=== PATIENT | female | born 1945 | race Caucasian/White ===

== ENCOUNTER → 2016-08-30 | Outpatient (CLI) | payer MEDICARE, BC | LOC: MW.CHFP 09:02 | PROVIDERS: ATTEND Nurse Practitioner Family | DX: R73.03 Prediabetes (principal); I10 Essential (primary) hypertension; E78.00 Pure hypercholesterolemia, unspecified; R73.09 Other abnormal glucose | CPT/HCPCS: 36415; 80053; 80061; 83036; 99214 ==

== ENCOUNTER → 2016-09-28 | Outpatient (CLI) | payer MEDICARE, BC | LOC: MW.CHFP 08:00 | PROVIDERS: ATTEND Nurse Practitioner Family | DX: R42 Dizziness and giddiness (principal) | CPT/HCPCS: G0463 ==

== ENCOUNTER → 2016-10-16 | Outpatient (CLI) | payer MEDICARE, BC | LOC: MW.CHFP 08:00 | PROVIDERS: ATTEND Nurse Practitioner Family | DX: R42 Dizziness and giddiness (principal) | CPT/HCPCS: G0463 ==

== ENCOUNTER → 2016-10-18 | Outpatient (CLI) | payer MEDICARE, BC ==
--- NOTE | 2016-10-18 13:22 | CT ---
EXAMINATION: Non contrast CT head. Coronal and sagittal reformats. HISTORY: Dizziness FINDINGS: No evidence of intra or extra axial hemorrhage, mass, midline shift, hydrocephalus or edema. There is mild generalized atrophy. Periventricular and subcortical white matter hypodensities are noted. No hypoattenuation changes in the major vascular territories to suggest acute infarct. No abnormal intracranial calcifications are detected. No evidence of substantial vascular calcifica tions. Paranasal sinuses and mastoid air cells are well aerated without substantial findings. Pituitary fossa appears unremarkable. Calvarium is intact. No evidence of skull fracture. IMPRESSION: 1. No acute intracranial findings. 2. Mild generalized atrophy and moderate small vessel ischemic changes.
== END | disposition home or self-care (01) ==
LOC: MW.DI 09:46
PROVIDERS: ATTEND Nurse Practitioner Family
DX: R42 Dizziness and giddiness (principal); R00.2 Palpitations; G31.9 Degenerative disease of nervous system, unspecified; I67.89 Other cerebrovascular disease
CPT/HCPCS: 36415; 70450; 70450-26; 84443; 85025

== ENCOUNTER → 2016-10-27 | Outpatient (CLI) | payer MEDICARE, BC ==
--- NOTE | 2016-10-29 16:35 | US ---
EXAM DATE: 10/27/16 PATIENT'S AGE: 71 Patient: SABINO ALCANTAR Facility: [place], [place] Site . Site : 1945 Study: US Neck Angio [id number]/28/2017 11:05:59 AM Ordering Physician: Debra Roman Final Report: HISTORY: Dizziness and giddiness. Findings: Multiple grayscale static images from a bilateral carotid ultrasound were evaluated. Color and spectral Doppler was used. There is intimal thickening in the right common carotid artery. Echogenic plaque is seen in the right carotid bulb extending into the proximal right internal carotid artery. The peak systolic velocity this right common carotid artery is 61 cm/second. The peak systolic velocity in the right internal carotid artery is 54 cm/second. The peak end-diastolic velocity is 20 cm/second. The right external carotid is patent. The right vertebral artery demonstrates antegrade flow. Right ICA/CCA ratio is 0.89. Evaluation of the left carotid vasculature demonstrates intimal thickening left common carotid artery. There is some echogenic plaque within the carotid bulb extending to proximal internal carotid artery. The peak systolic velocity in the distal left common carotid artery 64 cm/second. The peak systolic velocity left internal carotid artery is 67 cm/second. Peak end-diastolic velocity is 25 cm/second. The left external carotid artery is patent. The left vertebral artery demonstrates antegrade flow. Left ICA/ CCA ratio is 1.04. Impression: 1. The Doppler waveforms within the right and left internal carotid arteries are compatible with less than 50 percent stenosis. 2. Antegrade flow within both vertebral arteries. Dictated by Sadaf Lange MD @ Oct 27 2016 7:20PM (Electronic Signature) Report Signed by Proxy. CHRISSIE
--- NOTE | 2016-10-31 17:16 | ECHO ---
The echocardiogram report can be seen in this patient's EMR in the Reports section MTDD
== END ==
LOC: MW.US 09:19
PROVIDERS: ATTEND Nurse Practitioner Family
DX: R42 Dizziness and giddiness (principal)
CPT/HCPCS: 93306; 93880; 93880-26

== ENCOUNTER → 2016-11-09 | Outpatient (CLI) | payer MEDICARE, BC | LOC: MW.CHFP 08:00 | PROVIDERS: ATTEND Nurse Practitioner Family | DX: I10 Essential (primary) hypertension (principal) | CPT/HCPCS: G0463 ==

== ENCOUNTER 2020-06-19 13:48 | Emergency (ER) | payer MEDICARE, BC ==
--- NOTE | 2020-06-19 13:54 | EDM.PDOC ---
ED HPI GENERAL MEDICAL PROBLEM - General Chief Complaint: Respiratory Problem Stated Complaint: EMS ARRIVAL Time Seen by Provider: 06/19/20 13:52 - History of Present Illness INITIAL COMMENTS - FREE TEXT/NARRATIVE: History of present illness: [] The patient is lightheaded. She is increasingly lightheaded for a period of about weeks. She has felt a little bit weaker than usual for a month. About long-term through that time she saw her own doctor and was told she had an infection in her lungs. Her x-ray according her was normal but they put her on antibiotics. She continues to be a little more lightheaded especially when she stands. She gets a little clammy when she stands. She feels like she will pass out when she stands. She does not have any melena or blood in her stool. She does not menstruate. Review of systems: As per history of present illness and below otherwise all systems reviewed and negative. Past medical history: As per history of present illness and as reviewed below otherwise noncontributory. Surgical history: As per history of present illness and as reviewed below otherwise noncontributory. Social history: No reported history of drug or alcohol abuse. Family history: As per history of present illness and as reviewed below otherwise noncontributory. Physical exam: Constitutional - well developed, well-nourished and in no acute distress HEENT - normocephalic, no evidence of trauma - external nose and mouth normal - no mass in neck and no JVD - mucosae moist EYES - full EOM, PERRL, no icterus - no evidence of inflammation, injection, or drainage Respiratory - no respiratory distress, equal bilateral expansion, lungs clear to auscultation and no abnormal lung sounds Cardiovascular - Regular Rhythm with S1 and S2 appreciated and no murmur, gallop or rub. GI - abdomen soft without distension or organomegaly - normal bowel sounds - no guard or rebound Musculoskeletal no gross deformity of long bones or joints - no tenderness, swelling or edema Neurologic - Alert and oriented times four - CN II-XII grossly intact - motor sensory and coordination symmetrically normal Psychiatric - appropriate mood and affect with normal thought content Hematologic - No petechiae or purpura - mucosa appropriate color and sclera not pale - normal nail bed color and refill Integument - no rash or evidence of trauma - normal turgor Diagnostics: [] Therapeutics: [] Impression: [] Plan: [] Definitive disposition and diagnosis as appropriate pending reevaluation and review of above. - Related Data Allergies Allergy/AdvReac Type Severity Reaction Status Date / Time codeine Allergy Hallucinati Verified 06/19/20 13:49 ons erythromycin base Allergy Stomach Verified 06/19/20 13:49 [Erythromycin Base] Upset Penicillins Allergy Rash Verified 06/19/20 13:49 Home Meds: Home Meds Hydrochlorothiazide 25 mg PO DAILY 08/14/16 [History] Rosuvastatin Calcium 10 mg PO DAILY 08/14/16 [History] carvediloL [Carvedilol] 25 mg PO BID 08/14/16 [History] metFORMIN HCl [Metformin HCl] 500 mg PO BID 08/14/16 [History] Calcium Carbonate [Tums] 1 tab.chew CHEW ASDIRECTED PRN 05/10/18 [History] Carboxymethylcellulose Sodium [Refresh Tears] 1 drop EYEBOTH ASDIRECTED PRN 05/10/18 [History] Cholecalciferol (Vitamin D3) [Vitamin D3] 1,000 units PO DAILY 05/10/18 [History] Fish Oil/Wilburn-3 Fatty Acids [Fish Oil 1,000 MG] 1 tab PO DAILY 05/10/18 [History] Ketotifen Fumarate [Alaway] 1 drop EYEBOTH ASDIRECTED PRN 05/10/18 [History] Montelukast Sodium 10 mg PO BEDTIME 05/10/18 [History] diphenhydrAMINE HCL [Benadryl Allergy] 1 tab PO ASDIRECTED PRN 05/10/18 [History] Azithromycin 250 mg PO DAILY #6 tablet 06/19/20 [Rx] Past Medical History HEENT History: Reports: Allergic Rhinitis Other HEENT History: reading glasses, yulissa hearing aids (states will leave at home) Cardiovascular History: Reports: High Cholesterol, Hypertension Gastrointestinal History: Reports: Colon Polyp, Other (See Below) Other Gastrointestinal History: occasional heartburn Genitourinary History: Reports: None Musculoskeletal History: Reports: Arthritis, Back Pain, Chronic Neurological History: Reports: Concussion Psychiatric History: Reports: Anxiety, Depression Endocrine/Metabolic History: Reports: Diabetes, Type II, Obesity/BMI 30+ Other Endocrine/Metabolic History: "prediabetic" Hematologic History: Reports: Other (See Below) Other Hematologic History: unsure, "may have had transfusion with my first back surgery" Immunologic History: Reports: None Oncologic (Cancer) History: Reports: Breast Dermatologic History: Reports: Other (See Below) Other Dermatologic History: lichen sclerosus - Past Surgical History Head Surgeries/Procedures: Reports: None HEENT Surgical History: Reports: Cataract Surgery GI Surgical History: Reports: Appendectomy, Colonoscopy Female Surgical History: Reports: Breast Biopsy, Tubal Ligation Other Female Surgeries/Procedures: hx breast lumpectomy and lymphadenectomy for breast cancer Neurological Surgical History: Reports: Lumbar Spine Other Neurological Surgeries/Procedures: back surgery x3 Musculoskeletal Surgical History: Reports: Knee Replacement Other Musculoskeletal Surgeries/Procedures:: hx knee surgery and rt total knee arthroplasty Social & Family History - Caffeine Use Caffeine Use: Reports: None ED ROS GENERAL - Review of Systems Review Of Systems: Comprehensive ROS is negative, except as noted in HPI. ED EXAM, GENERAL - Physical Exam Exam: See Below Free Text/Narrative:: My physical exam is in the HPI #1 Interpretation EKG Interpretation Comments: EKG sinus rhythm with heart rate of 76 TN interval is 172 and the QT is 484 the axis is -36 and she has a right bundle branch block pattern. Paired to 04/25/2016 the right bundle branch pattern is new clinical significance will have to be determined based on clinical criteria. Pression no obvious acute ischemia Course - Vital Signs Text/Narrative:: Patient did well. She understood her instructions. She was discharged in satisfactory condition. Last Recorded V/S: Last Vital Signs Temp 36.3 C 06/19/20 13:50 Pulse 84 06/19/20 13:50 Resp 18 06/19/20 13:50 BP 131/79 06/19/20 13:50 Pulse Ox 94 L 06/19/20 13:50 Orthostatic Blood Pressure [ 107/94 Standing] Orthostatic Blood Pressure [ 127/73 Sitting] Orthostatic Blood Pressure [ 118/79 Supine] - Orders/Labs/Meds Orders: Active Orders 24 hr Category Date Time Status EKG Documentation Completion [RC] AM Care 06/19/20 14:01 Active Orthostatic Vital Signs [RC] ASDIRECTED Care 06/19/20 14:04 Active UA W/KORTNEY RFLX IF INDICATED [URIN] Stat Lab 06/19/20 14:01 Ordered Potassium Chloride [Klor-Con M20] Med 06/19/20 15:55 Once 20 meq PO ONETIME ONE Sodium Chloride 0.9% [Saline Flush] Med 06/19/20 14:01 Active 10 ml FLUSH ASDIRECTED PRN Sodium Chloride 0.9% [Saline Flush] Med 06/19/20 14:01 Active 2.5 ml FLUSH ASDIRECTED PRN Saline Lock Insert [OM.PC] Stat Oth 06/19/20 14:01 Ordered Medication Orders Sodium Chloride (Saline Flush) 10 ml FLUSH ASDIRECTED PRN PRN Reason: Keep Vein Open Last Admin: 06/19/20 14:16 Dose: 10 ml Documented by: NATHAN Sodium Chloride (Saline Flush) 2.5 ml FLUSH ASDIRECTED PRN PRN Reason: Keep Vein Open Last Admin: 06/19/20 14:16 Dose: 2.5 ml Documented by: NATHAN Labs: Laboratory Tests 06/19/20 06/19/20 06/19/20 Range/Units 13:51 13:51 14:38 WBC 10.02 (4.0-11.0) K/uL RBC 4.51 (4.30-5.90) M/uL Hgb 14.2 (12.0-16.0) g/dL Hct 43.1 (36.0-46.0) % MCV 95.6 (80.0-98.0) fL MCH 31.5 (27.0-32.0) pg MCHC 32.9 (31.0-37.0) g/dL RDW Std Deviation 48.9 (28.0-62.0) fl RDW Coeff of Stevan 14 (11.0-15.0) % Plt Count 325 (150-400) K/uL MPV 9.80 (7.40-12.00) fL Neut % (Auto) 44.9 L (48.0-80.0) % Lymph % (Auto) 46.1 H (16.0-40.0) % Cuming % (Auto) 8.5 (0.0-15.0) % Eos % (Auto) 0.4 (0.0-7.0) % Baso % (Auto) 0.1 (0.0-1.5) % Neut # (Auto) 4.5 (1.4-5.7) K/uL Lymph # (Auto) 4.6 H (0.6-2.4) K/uL Cuming # (Auto) 0.9 H (0.0-0.8) K/uL Eos # (Auto) 0.0 (0.0-0.7) K/uL Baso # (Auto) 0.0 (0.0-0.1) K/uL Nucleated RBC % 0.0 /100WBC Nucleated RBCs # 0 K/uL Sodium 136 (136-145) mmol/L Potassium 3.1 L (3.5-5.1) mmol/L Chloride 97 L (98-107) mmol/L Carbon Dioxide 28.4 (21.0-32.0) mmol/L BUN 32 H (7.0-18.0) mg/dL Creatinine 0.9 (0.6-1.0) mg/dL Est Cr Clr Drug Dosing 47.36 mL/min Estimated GFR (MDRD) > 60.0 ml/min Glucose 108 H (74-106) mg/dL Calcium 8.7 (8.5-10.1) mg/dL Total Bilirubin 0.4 (0.2-1.0) mg/dL AST 12 L (15-37) IU/L ALT 30 (14-63) IU/L Alkaline Phosphatase 39 L (46-116) U/L Total Protein 6.8 (6.4-8.2) g/dL Albumin 3.3 L (3.4-5.0) g/dL Globulin 3.5 (2.6-4.0) g/dL Albumin/Globulin Ratio 0.9 (0.9-1.6) SARS-CoV-2 RNA (LUBA) NEGATIVE (NEGATIVE) Meds: Medications Generic Name Dose Route Start Last Admin Trade Name Freq PRN Reason Stop Dose Admin Sodium Chloride 10 ml 06/19/20 14:01 06/19/20 14:16 Saline Flush FLUSH 10 ml ASDIRECTED PRN Administration Keep Vein Open Sodium Chloride 2.5 ml 06/19/20 14:01 06/19/20 14:16 Saline Flush FLUSH 2.5 ml ASDIRECTED PRN Administration Keep Vein Open Departure - Departure Time of Disposition: 15:58 Disposition: Home, Self-Care 01 Condition: Good Clinical Impression: Pneumonia, Hypokalemia, Dehydration - Discharge Information Instructions: Community-Acquired Pneumonia, Adult, [id number], Dehydration, Adult, Rpuk-ts-Xwvo, Hypokalemia Forms: ED Department Discharge Additional Instructions: Crease fluids. Increase your potassium content of your diet. Return if worse. [facility] - [facility] [address] [place] [id number] [id number] The following information is given to patients seen in the emergency department who are being discharged to home. This information is to outline your options for follow-up care. We provide all patients seen in our emergency department with a follow-up referral. The need for follow-up, as well as the timing and circumstances, are variable depending upon the specifics of your emergency department visit. If you don't have a primary care physician on staff, we will provide you with a referral. We always advise you to contact your personal physician following an emergency department visit to inform them of the circumstance of the visit and for follow-up with them and/or the need for any referrals to a consulting specialist. The emergency department will also refer you to a specialist when appropriate. This referral assures that you have the opportunity for follow-up care with a specialist. All of these measure are taken in an effort to provide you with optimal care, which includes your follow-up. Under all circumstances we always encourage you to contact your private physician who remains a resource for coordinating your care. When calling for follow-up care, please make the office aware that this follow-up is from your recent emergency room visit. If for any reason you are refused follow-up, please contact the [facility] Emergency Department at and asked to speak to the emergency department charge nurse. Sepsis Event Note (ED) - Evaluation Sepsis Screening Result: No Definite Risk - Focused Exam Vital Signs: Vital Signs Temp Pulse Resp BP Pulse Ox 06/19/20 13:50 36.3 C 84 18 131/79 94 L - My Orders Last 24 Hours: My Active Orders 06/19/20 14:01 EKG Documentation Completion [RC] AM UA W/KORTNEY RFLX IF INDICATED [URIN] Stat Sodium Chloride 0.9% [Saline Flush] 10 ml FLUSH ASDIRECTED PRN Sodium Chloride 0.9% [Saline Flush] 2.5 ml FLUSH ASDIRECTED PRN Saline Lock Insert [OM.PC] Stat 06/19/20 14:04 Orthostatic Vital Signs [RC] ASDIRECTED 06/19/20 15:55 Potassium Chloride [Klor-Con M20] 20 meq PO ONETIME ONE - Assessment/Plan Last 24 Hours: My Active Orders 06/19/20 14:01 EKG Documentation Completion [RC] AM UA W/KORTNEY RFLX IF INDICATED [URIN] Stat Sodium Chloride 0.9% [Saline Flush] 10 ml FLUSH ASDIRECTED PRN Sodium Chloride 0.9% [Saline Flush] 2.5 ml FLUSH ASDIRECTED PRN Saline Lock Insert [OM.PC] Stat 06/19/20 14:04 Orthostatic Vital Signs [RC] ASDIRECTED 06/19/20 15:55 Potassium Chloride [Klor-Con M20] 20 meq PO ONETIME ONE
[2020-06-19] MEDS ORDERED: Sodium Chloride 0.9% 2.5 ML Syringe FLUSH PRN (14:01)
[2020-06-19] MEDS ORDERED: Sodium Chloride 0.9% 10 ML Syringe FLUSH PRN (14:01)
[2020-06-19 14:12] VITALS: BP 131/79; PULSE 84
[2020-06-19 14:25] LABS: BLOOD UREA NITROGEN,BUN 32 mg/dL (7.0-18.0); CARBON DIOXIDE,CO2 28.4 mmol/L (21.0-32.0); CHLORIDE,CL 97 mmol/L (98-107); GLUCOSE RANDOM 108 mg/dL (74-106); POTASSIUM,K 3.1 mmol/L (3.5-5.1); SODIUM,NA 136 mmol/L (136-145)
--- NOTE | 2020-06-19 14:40 | CR ---
INDICATION: Dyspnea. TECHNIQUE: AP portable chest x-ray. COMPARISON: Chest x-ray 03/19/2015. FINDINGS: Slight platelike atelectasis or scarring in the lung bases has changed mildly and variably. Benign lucent and sclerotic change in the humeral heads and necks bilaterally more apparent on the left and either new or more apparent on the right. Findings nonspecific in etiology. No focal infiltrate or consolidation in either lung. Heart size is normal. Metallic spinal fusion hardware lower thoracic and upper lumbar spine partially visualized. This is new. Remainder negative. Dictated by Bairon Wogn MD @ Jun 19 2020 2:35PM Signed by Dr. Bairon Wong @ Jun 19 2020 2:37PM
[2020-06-19] MEDS ORDERED: Potassium Chloride 20 MEQ Tab.ER PO ONE (15:55)
== END 2020-06-19 16:08 | disposition home or self-care (01) ==
LOC: MW.ED 13:48
DX: E86.0 Dehydration (principal); J18.9 Pneumonia, unspecified organism; E87.6 Hypokalemia; E78.00 Pure hypercholesterolemia, unspecified; I10 Essential (primary) hypertension; E11.9 Type 2 diabetes mellitus without complications; I45.10 Unspecified right bundle-branch block; E66.9 Obesity, unspecified; Z68.33 Body mass index [BMI] 33.0-33.9, adult; Z88.5 Allergy status to narcotic agent; Z88.1 Allergy status to other antibiotic agents; Z88.0 Allergy status to penicillin; Z79.899 Other long term (current) drug therapy; Z20.828 Contact with and (suspected) exposure to other viral communicable diseases
CPT/HCPCS: 36415; 71045; 80053; 85025; 93005; 99285; A9270; U0002; 93010; 99283

== ENCOUNTER 2022-06-24 08:24 | Observation (INO) | payer MEDICARE, BC ==
[2022-06-24] MEDS ORDERED: Lactated Ringers 1,000 ML IV STA (08:46)
[2022-06-24 09:24] LABS: CORONAVIRUS COVID-19 NAA POSITIVE (NEGATIVE); INFLUENZA A NAA NEGATIVE (NEGATIVE); INFLUENZA B NAA NEGATIVE (NEGATIVE); RESPIRATORY SYNCYTIAL VIR NAA NEGATIVE (NEGATIVE)
[2022-06-24] MEDS ORDERED: Albuterol/Ipratropium 3.0-0.5 MG/3 ML Neb Soln NEB ONE (09:28)
[2022-06-24 09:52] LABS: CARBON DIOXIDE,CO2 31.1 mmol/L (21.0-32.0); POTASSIUM,K 3.2 mmol/L (3.5-5.1)
[2022-06-24] MEDS ORDERED: Dexamethasone 4 MG Tab PO STA (10:30)
[2022-06-24] MEDS ORDERED: Ondansetron 4 MG/2 ML SDV IVPUSH PRN (10:57)
[2022-06-24] MEDS ORDERED: Acetaminophen 325 MG Tab PO PRN (10:57)
[2022-06-24] MEDS ORDERED: Polyethylene Glycol 3350 Powder 17 GM Packet PO PRN (10:57)
[2022-06-24] MEDS ORDERED: Albuterol/Ipratropium 3.0-0.5 MG/3 ML Neb Soln NEB PRN (10:57)
[2022-06-24] MEDS ORDERED: Potassium Chloride 20 MEQ Tab.ER PO ONE (13:37)
[2022-06-24] MEDS ORDERED: traMADol 50 MG Tab PO PRN (13:38)
[2022-06-24] MEDS ORDERED: 50% Dextrose in Water 50 ML Syringe IVPUSH PRN (13:39)
[2022-06-24] MEDS ORDERED: Glucagon,Human Recombinant 1 MG Vial IM PRN (13:39)
[2022-06-24] MEDS: Insulin Aspart 100 Units/ML 3 ML Pen SUBCUT SCH (17:49)
[2022-06-24] MEDS: Benzocaine/Cetylpyridinium/Menthol Lozenge MUCMEM PRN ×2 (18:09→23:57)
[2022-06-24] MEDS ORDERED: Rosuvastatin 10 MG Tab PO SCH (21:00)
[2022-06-24] MEDS: Carvedilol 25 MG Tab PO SCH (21:46)
[2022-06-25] MEDS: Benzocaine/Cetylpyridinium/Menthol Lozenge MUCMEM PRN ×2 (06:37→12:31)
[2022-06-25 07:03] LABS: CARBON DIOXIDE,CO2 27.3 mmol/L (21.0-32.0); POTASSIUM,K 3.4 mmol/L (3.5-5.1)
[2022-06-25] MEDS: Insulin Aspart 100 Units/ML 3 ML Pen SUBCUT SCH ×2 (07:30→11:30)
[2022-06-25] MEDS ORDERED: Pantoprazole 40 MG Tab.CR PO SCH (07:30)
[2022-06-25] MEDS: Carvedilol 25 MG Tab PO SCH (08:58)
[2022-06-25] MEDS ORDERED: Sertraline 25 MG Tab PO SCH ×2 (09:00→21:00)
[2022-06-25] MEDS ORDERED: Hydrochlorothiazide 25 MG Tab PO SCH (09:00)
[2022-06-25] MEDS ORDERED: Potassium Chloride 20 MEQ Tab.ER PO ONE (10:49)
[2022-06-25] MEDS ORDERED: REMDESIVIR 200 MG in Sodium Chloride 0.9% 250 ML IV ONE (11:15)
[2022-06-25 14:05] VITALS: BP 114/67; PULSE 84
== END 2022-06-25 16:15 | disposition home or self-care (01) ==
LOC: MW.ED 08:24 → MW.MS 10:33
PROVIDERS: ADMIT Internal Medicine; ATTEND Internal Medicine
DX: U07.1 COVID-19 (principal); J96.01 Acute respiratory failure with hypoxia; I10 Essential (primary) hypertension; E78.00 Pure hypercholesterolemia, unspecified; E66.9 Obesity, unspecified; E11.9 Type 2 diabetes mellitus without complications; J30.9 Allergic rhinitis, unspecified; M19.90 Unspecified osteoarthritis, unspecified site; Z79.899 Other long term (current) drug therapy; Z88.0 Allergy status to penicillin; Z88.5 Allergy status to narcotic agent; Z88.1 Allergy status to other antibiotic agents; Z96.651 Presence of right artificial knee joint; Z98.890 Other specified postprocedural states
CPT/HCPCS: 0241U; 36415; 71045; 80053; 82947; 83605; 83735; 84100; 85025; 85610; 87040; A9270; J1815; J7050; J7120; J8540; J7620-GY